=== PATIENT | female | born 1985 | race Caucasian/White ===

== ENCOUNTER 2017-06-15 17:51 | Emergency (ER) | payer SELFPAY ==
[~2017-06-15] VITALS: Ht 152.4 cm; Wt 68.2 kg
[~2017-06-15 17:51] MED LIST: ATIVAN 1MG T1 MG/TAB PO; CELEXA 20MG20 MG/TAB PO; DEPAKOTE 125MG125 M1 PO; DEPAKOTE 250MG250 MG PO; ERYTHROMYCIN E3.5 GM OU; GENTAMICIN EYE D5 ML OD; LOESTRIN1.5/30 21DAY PO; LORTAB 5/500 501 TAB PO; MICROGESTIN 1.51 TAB PO; MICROGESTIN 1/21 TAB PO; NO HOME MEDICATIONS; NORCO 325 MG-51 TAB PO; PHENERGAN12.5 MG/SU RC; TOPAMAX 25MG25 M1 PO; TOPAMAX200 MG PO; ZOFRAN ODT4 MG PO
[2017-06-15 17:58] VITALS: TEMP 98.4
[2017-06-15] MEDS ORDERED: ZOFRAN ODT4 MG PO (19:49)
[2017-06-15 20:02] VITALS: BP 122/69; PULSE 75
== END 2017-06-15 20:04 | disposition home or self-care (01) ==
LOC: COL.ER 17:51
DX: G43.909 Migraine, unspecified, not intractable, without status migrainosus (principal)
CPT/HCPCS: J0595; J1200; J1885; J2550; J7030

== ENCOUNTER → 2017-10-13 | Outpatient (CLI) | payer BC ==
[2017-10-13 15:27] LABS: THYROID STIMULATING HORMONE 1.33 uIU/mL (0.465-4.680)
== END ==
LOC: COL.LAB 13:50
PROVIDERS: Family Medicine
DX: R53.83 Other fatigue (principal); Z91.89 Other specified personal risk factors, not elsewhere classified; M79.641 Pain in right hand; Z88.5 Allergy status to narcotic agent

== ENCOUNTER 2017-10-25 03:09 | Emergency (ER) | payer BC ==
[~2017-10-25] VITALS: Ht 152.4 cm; Wt 65.9 kg
[2017-10-25 03:15] VITALS: TEMP 100.4
[2017-10-25] MEDS ORDERED: PRILOTC (03:18)
[2017-10-25] MEDS ORDERED: TAMIFLU 75MG75 MG PO (04:50)
[2017-10-25] MEDS ORDERED: ZOFRAN ODT4 MG PO (04:51)
[2017-10-25 05:33] VITALS: BP 114/69; PULSE 106
== END 2017-10-25 07:02 | disposition home or self-care (01) ==
LOC: COL.ER 03:09
DX: J10.1 Influenza due to other identified influenza virus with other respiratory manifestations (principal); G43.909 Migraine, unspecified, not intractable, without status migrainosus
CPT/HCPCS: J0780; J1200; J1885; J7030

== ENCOUNTER → 2017-11-19 | Outpatient (CLI) | payer BC ==
[~2017-11-19] MED LIST changes: +PRILOTC; +TAMIFLU 75MG75 MG PO
== END ==
LOC: COL.RAD 15:03
DX: M54.5 Low back pain (principal); M25.551 Pain in right hip

== ENCOUNTER → 2017-12-10 | Outpatient (CLI) | payer BC | LOC: COL.LAB 15:51 | DX: Z01.89 Encounter for other specified special examinations (principal) ==

== ENCOUNTER 2023-12-08 15:23 | Emergency (ER) | payer SELFPAY ==
[~2023-12-08] VITALS: Ht 152.4 cm; Wt 47.7 kg
[2023-12-08 15:26] VITALS: BP 108/67; TEMP 97.6
[2023-12-08] MEDS ORDERED: NORCO 325 MG-51 TAB PO (16:41)
[2023-12-08 17:03] VITALS: PULSE 80
== END 2023-12-08 17:04 | disposition home or self-care (01) ==
LOC: COL.ER 15:23
DX: S00.33XA Contusion of nose, initial encounter (principal); G43.909 Migraine, unspecified, not intractable, without status migrainosus; Z79.899 Other long term (current) drug therapy; Z91.040 Latex allergy status; W54.1XXA Struck by dog, initial encounter